=== PATIENT | male | born 1985 | race African-American/Black ===

== ENCOUNTER 2019-02-13 17:07 | Emergency (ER) | payer SELFPAY ==
[~2019-02-13] VITALS: Ht 180.3 cm; Wt 90.7 kg
--- NOTE | 2019-02-13 17:10 | NUR ---
ED Nurse Note: patient brought in by [facility] and [facility], on 5150 hold. patient himself called [facility] that he is trying to kill himself. per [facility] psychiatrist from [facility], patient tasered himself twice on the legs. patient stated to [facility] that he took 6 seroquel pills and 6 ecstasy pills. patient is on 5150 hold for hurt for himself. Alert awake x4, slurred speech. ambulatory steady gait. follows direction.
--- NOTE | 2019-02-13 18:18 | NUR ---
ED Nurse Note: patient's belongings placed in locker #2
[2019-02-13 18:27] LABS: BASOPHILS % (AUTO) 0.9 % (0.0-2.0); EOSINOPHILS % (AUTO) 1.5 % (0.0-3.0); HEMATOCRIT 44.2 % (42.0-52.0); HEMOGLOBIN 15.4 G/DL (14.2-18.0); LYMPHOCYTES % (AUTO) 24.9 % (20.0-45.0); MEAN CORPUSCULAR VOLUME 91 FL (80-99); MONOCYTES % (AUTO) 5.1 % (1.0-10.0); NEUTROPHILS % (AUTO) 67.7 % (45.0-75.0); PLATELET COUNT 349 K/UL (150-450); RED BLOOD COUNT 4.87 M/UL (4.70-6.10); RED CELL DISTRIBUTION WIDTH 12.4 % (11.6-14.8); WHITE BLOOD COUNT 9.3 K/UL (4.8-10.8)
[2019-02-13 18:32] LABS: ANION GAP 8 mmol/L (5-15); BLOOD UREA NITROGEN 7 mg/dL (7-18); CALCIUM 10.3 MG/DL (8.5-10.1); CARBON DIOXIDE 33 MMOL/L (21-32); CHLORIDE 100 MMOL/L (98-107); CREATININE 1.1 MG/DL (0.55-1.30); POTASSIUM 3.8 MMOL/L (3.5-5.1); SODIUM 141 MMOL/L (136-145)
[2019-02-13 18:37] LABS: ALANINE AMINOTRANSFERASE 27 U/L (12-78); ALBUMIN 3.9 G/DL (3.4-5.0); ALKALINE PHOSPHATASE 122 U/L (46-116); ASPARTATE AMINO TRANSFERASE 21 U/L (15-37); BILIRUBIN,TOTAL 0.5 MG/DL (0.2-1.0)
[2019-02-13 18:50] VITALS: BP 154/85
--- NOTE | 2019-02-13 19:19 | NUR ---
HAND-OFF: Report given to Ting Michelle RN. Patient is stable in bed.
[2019-02-13 20:04] VITALS: BP 149/96
--- NOTE | 2019-02-13 20:06 | NUR ---
ER Nurse Note: Pt a&ox4, VSS, no signs of distress. Pt denies pain. Pt states he does not feel like hurting himself currently. IV patent. All safety measures met; will continue to montior.
--- NOTE | 2019-02-13 21:30 | NUR ---
ED Nurse Note: received report from yocasta littlejohn . pt has stable vss and has no acute pain at themoment. pt is cooperative and calm. pt denies suicidal ideation/plan to harmself.
--- NOTE | 2019-02-13 21:44 | Emergency Room Report ---
History of Present Illness General Chief Complaint: Overdose Source: Patient Present Illness HPI 33-year-old male presents ED for evaluation. Brought in by EMS. Patient called 911 stating that he wanted hurt himself. States that he took some ecstasy and has been drinking alcohol. Also took some Seroquel that did not belong to him. Denies SI or HI at this time. States that he has previous he try to hurt himself and has been hospitalized other psychiatric facilities. Denies hearing voices. States that he used to take seroquel in the past. Allergies: Coded Allergies: No Known Allergies (Unverified , 02/13/19) Patient History Past Medical History: psych hx Past Surgical History: none Pertinent Family History: none Social History: Denies: smoking, alcohol use, drug use Immunizations: UTD Reviewed Nursing Documentation: PMH: Agreed; PSxH: Agreed Nursing Documentation-PMH Hx Neurological Problems: Yes - ADHD Review of Systems All Other Systems: negative except mentioned in HPI Physical Exam Vital Signs Date Time Temp Pulse Resp B/P (MAP) Pulse Ox O2 Delivery O2 Flow Rate FiO2 02/13/19 17:02 98.1 85 16 160/90 98 Room Air Sp02 EP Interpretation: reviewed, normal General Appearance: no apparent distress, alert, GCS 15, non-toxic Head: normocephalic, atraumatic Eyes: bilateral eye normal inspection, bilateral eye PERRL ENT: hearing grossly normal, normal pharynx, no angioedema, normal voice Neck: full range of motion, supple/symm/no masses Respiratory: chest non-tender, lungs clear, normal breath sounds, speaking full sentences Cardiovascular #1: regular rate, rhythm, no edema Cardiovascular #2: 2+ carotid (R), 2+ carotid (L), 2+ radial (R), 2+ radial (L) , 2+ dorsalis pedis (R), 2+ dorsalis pedis (L) Gastrointestinal: normal bowel sounds, non tender, soft, non-distended, no guarding, no rebound Rectal: deferred Genitourinary: normal inspection, no CVA tenderness Musculoskeletal: back normal, gait/station normal, normal range of motion, non- tender Neurologic: alert, oriented x3, responsive, motor strength/tone normal, sensory intact, speech normal Psychiatric: no suicidal/homicidal ideation, no delusions, depressed affect, anxious Reflexes: 3+ bicep (R), 3+ bicep (L), 3+ tricep (R), 3+ tricep (L), 3+ knee (R) , 3+ knee (L) Skin: normal color, no rash, warm/dry, well hydrated Lymphatic: no adenopathy Medical Decision Making Diagnostic Impression: Primary Impression: Behavior disturbance Additional Impression: Substance abuse ER Course Hospital Course 3-year-old male presents for evaluation. Call 911 stating he wants to hurt himself Differential diagnoses include: Major depressive disorder, unspecified psychosis , EtOH abuse, drug abuse Clinical course Patient placed on stretcher. On one to one observation. After initial history and physical I ordered labs, U. tox, zyprexa Labs-electrolytes normal, aspirin/Tylenol levels normal, EtOH level normal, U. tox +THC + amphetamines Patient is on 5150 hold. Has significant prior psychiatric history with reportedly trying to kill himself in the past. Patient is medically cleared and pending psychiatric evaluation. i. I feel this is a highly complex case requiring extensive working including EKG/Rhythm strip, Xray/CT/US, Blood/urine lab work, repeat exams while in ED, and administration of strong opiates/narcotics for pain control, admission to hospital or close patient follow up. Labs Test 02/13/19 18:00 02/13/19 18:02 White Blood Count 9.3 K/UL (4.8-10.8) Red Blood Count 4.87 M/UL (4.70-6.10) Hemoglobin 15.4 G/DL (14.2-18.0) Hematocrit 44.2 % (42.0-52.0) Mean Corpuscular Volume 91 FL (80-99) Mean Corpuscular Hemoglobin 31.7 PG (27.0-31.0) Mean Corpuscular Hemoglobin Concent 34.9 G/DL (32.0-36.0) Red Cell Distribution Width 12.4 % (11.6-14.8) Platelet Count 349 K/UL (150-450) Mean Platelet Volume 5.1 FL (6.5-10.1) Neutrophils (%) (Auto) 67.7 % (45.0-75.0) Lymphocytes (%) (Auto) 24.9 % (20.0-45.0) Monocytes (%) (Auto) 5.1 % (1.0-10.0) Eosinophils (%) (Auto) 1.5 % (0.0-3.0) Basophils (%) (Auto) 0.9 % (0.0-2.0) Sodium Level 141 MMOL/L (136-145) Potassium Level 3.8 MMOL/L (3.5-5.1) Chloride Level 100 MMOL/L (98-107) Carbon Dioxide Level 33 MMOL/L (21-32) Anion Gap 8 mmol/L (5-15) Blood Urea Nitrogen 7 mg/dL (7-18) Creatinine 1.1 MG/DL (0.55-1.30) Estimat Glomerular Filtration Rate > 60 mL/min (>60) Glucose Level 83 MG/DL (74-106) Calcium Level 10.3 MG/DL (8.5-10.1) Total Bilirubin 0.5 MG/DL (0.2-1.0) Aspartate Amino Transf (AST/SGOT) 21 U/L (15-37) Alanine Aminotransferase (ALT/SGPT) 27 U/L (12-78) Alkaline Phosphatase 122 U/L (46-116) Total Protein 7.7 G/DL (6.4-8.2) Albumin 3.9 G/DL (3.4-5.0) Globulin 3.8 g/dL Albumin/Globulin Ratio 1.0 (1.0-2.7) Salicylates Level 3.9 ug/mL (2.8-20) Acetaminophen Level < 2 MCG/ML (10-30) Serum Alcohol < 3 mg/dL Urine Opiates Screen Negative (NEGATIVE) Urine Barbiturates Screen Negative (NEGATIVE) Phencyclidine (PCP) Screen Negative (NEGATIVE) Urine Amphetamines Screen Positive (NEGATIVE) Urine Benzodiazepines Screen Negative (NEGATIVE) Urine Cocaine Screen Negative (NEGATIVE) Urine Marijuana (THC) Screen Positive (NEGATIVE) Last Vital Signs Date Time Temp Pulse Resp B/P (MAP) Pulse Ox O2 Delivery O2 Flow Rate FiO2 02/13/19 20:04 98.0 71 17 149/96 99 Room Air Status: improved Disposition: XFER TO PSYCH HOSP/UNIT Condition: Serious Referrals: NOT CHOSEN IPA/,REFERRING (PCP) Jonh Mcrae MD Feb 13, 2019 21:44
[2019-02-13 22:30] VITALS: BP 145/87
[2019-02-14 00:53] VITALS: BP 143/83
--- NOTE | 2019-02-14 00:54 | NUR ---
ED Nurse Note: pt is asleep in bed resting will continue to monitor, vss at the moment
[2019-02-14 02:49] VITALS: BP 149/86
--- NOTE | 2019-02-14 03:30 | NUR ---
ED Nurse Note: telephone report given to yocasta medrano
[2019-02-14 04:38] VITALS: BP 145/84
[2019-02-14 06:00] VITALS: BP 147/84
--- NOTE | 2019-02-14 06:34 | NUR ---
ED Nurse Note: [facility] at [facility]. pt IV removed. pt is aox4, pt skin intact, pt shows no signs of distress, pt belongings given to [facility].
[2019-02-14 06:35] VITALS: BP 136/82
== END 2019-02-14 06:35 ==
LOC: EDBD 17:07 → EMR 17:46
DX: F91.9 Conduct disorder, unspecified (principal); F19.10 Other psychoactive substance abuse, uncomplicated; F90.9 Attention-deficit hyperactivity disorder, unspecified type
CPT/HCPCS: 36415; 80053; 80307; 85025; 96360; 99284; G0480; 80329